=== PATIENT | female | born 1975 | race Caucasian/White ===

== ENCOUNTER 2018-06-18 19:14 | Emergency (ER) | payer OTHER ==
[2018-06-18] MEDS ORDERED: ONDANSETRON 4 MG/2 ML VIAL ONE ×2 (19:19→19:54)
[2018-06-18] MEDS ORDERED: ONDANSETRON 4 MG/2 ML VIAL IVPUSH ONE ×2 (19:28→19:52)
[2018-06-18] MEDS ORDERED: SODIUM CHLORIDE 1,000 ML IV STA ×2 (19:28→19:52)
--- NOTE | 2018-06-18 19:29 | PDOC ---
History of Present Illness - General History Source: Patient Exam Limitations: No Limitations - History of Present Illness Initial Comments: 06/18/18 20:03 The patient is a 42 year old female, with no significant PMH, who presents to the emergency department complaining of nonbilious nonbloody vomiting that began today at noon. The patient endorses associated symptoms of 1 episode of diarrhea, chills, and nausea. The patient states she thinks she has a stomach virus because she was in contact with friends son who had it. The patient denies chest pain, shortness of breath, headache and dizziness.Denies fever and constipation.Denies dysuria, frequency, urgency and hematuria. Allergies: sulfur Past surgical history:None reported Social history: None reported PCP:None reported <Cristo Barbour - Last Filed: 06/18/18 21:03> <Olga Eastman - Last Filed: 06/19/18 00:02> - General Chief Complaint: Nausea/Vomiting Stated Complaint: VOMITING SINCE 12N Time Seen by Provider: 06/18/18 19:15 Past History <Cristo Barbour - Last Filed: 06/18/18 21:03> - Past Medical History COPD: No - Suicide/Smoking/Psychosocial Hx Smoking History: Never smoked Have you smoked in the past 12 months: No Information on smoking cessation initiated: No Hx Alcohol Use: No Drug/Substance Use Hx: No <Olga Eastman - Last Filed: 06/19/18 00:02> - Past Medical History Allergies/Adverse Reactions: Allergies Allergy/AdvReac Type Severity Reaction Status Date / Time sulfur [From Sulfur-8] Allergy Verified 06/18/18 19:22 Home Medications: Ambulatory Orders Fluticasone Prop 0.05% Nasal [Flonase -] 1 - 2 spray NS DAILY 06/18/18 Review of Systems - Review of Systems Able to Perform ROS?: Yes Comments:: 06/18/18 20:03 GENERAL/CONSTITUTIONAL:+Chills. No weakness. HEAD, EYES, EARS, NOSE AND THROAT: No change in vision. No ear pain or discharge. No sore throat. CARDIOVASCULAR: No chest pain or shortness of breath. RESPIRATORY: No cough, wheezing, or hemoptysis. GASTROINTESTINAL: +Nausea + vomiting + diarrhea. No constipation. GENITOURINARY: No dysuria, frequency, or change in urination. MUSCULOSKELETAL: No joint or muscle swelling or pain. No neck or back pain. SKIN: No rash NEUROLOGIC: No headache, vertigo, loss of consciousness, or change in strength/ sensation. ENDOCRINE: No increased thirst. No abnormal weight change. HEMATOLOGIC/LYMPHATIC: No anemia, easy bleeding, or history of blood clots. ALLERGIC/IMMUNOLOGIC: No hives or skin allergy. <KmSkylersimon - Last Filed: 06/18/18 21:03> *Physical Exam - Vital Signs Last Vital Signs Temp Pulse Resp BP Pulse Ox 98.6 F 99 H 16 125/84 100 06/18/18 19:24 06/18/18 19:24 06/18/18 19:24 06/18/18 19:24 06/18/18 19:24 - Physical Exam Comments: 06/18/18 20:03 GENERAL: Awake, alert, and fully oriented, in no acute distress HEAD: No signs of trauma EYES: PERRLA, EOMI, sclera anicteric, conjunctiva clear ENT: +Dry mucous membrane.Auricles normal inspection, hearing grossly normal, nares patent, oropharynx clear without exudates. LUNGS: Breath sounds equal, clear to auscultation bilaterally. No wheezes, and no crackles HEART: Regular rate and rhythm, normal S1 and S2, no murmurs, rubs or gallops ABDOMEN: Soft, nontender, normoactive bowel sounds. No guarding, no rebound. No masses NEUROLOGICAL: Cranial nerves II through XII grossly intact. Normal speech, normal gait SKIN: Warm, Dry, normal turgor, no rashes or lesions noted. <Cristo Barbour - Last Filed: 06/18/18 21:03> - Vital Signs Last Vital Signs Temp Pulse Resp BP Pulse Ox 98.6 F 99 H 16 125/84 100 06/18/18 19:24 06/18/18 19:24 06/18/18 19:24 06/18/18 19:24 06/18/18 19:24 <Olga Eastman - Last Filed: 06/19/18 00:02> ED Treatment Course - Medications Given in the ED: ED Medications Discontinued Medications Generic Name Dose Route Start Last Admin Trade Name Freq PRN Reason Stop Dose Admin Ondansetron HCl 4 mg 06/18/18 19:28 06/18/18 19:31 Zofran Injection IVPUSH 06/18/18 19:29 4 mg ONCE ONE Administration Ondansetron HCl 4 mg 06/18/18 19:52 06/18/18 19:59 Zofran Injection IVPUSH 06/18/18 19:53 4 mg ONCE ONE Administration <Cristo Barbour - Last Filed: 06/18/18 21:03> Progress Note - Progress Note Progress Note: Documentation has been prepared under my direction and personally reviewed by me in its entirety. I attest that this documented accurately reflects all work, treatment, procedures and medical decision making performed by me. <Olga Eastman - Last Filed: 06/19/18 00:02> Medical Decision Making - Medical Decision Making As noted above, this 42-year-old woman presents with 1 day history of nausea and vomiting (also had one episode of diarrhea). No fever or significant abdominal pain. Patient had known exposure to child with gastroenteritis. Exam as noted. Patient received 2 L of normal saline as well as 8 mg Zofran IV. Patient reports that she feels somewhat better although has some slight nausea. She much prefers to be discharged rather than have another antiemetic medication administered. Since her hydration appears to be significantly better on exam (mucous membranes moist) and she is not actively vomiting, she will be discharged with instructions to follow clear liquid diet and advance very cautiously. The patient has Zofran ODT tablets at home([id number] is box liner and had given her samples of the medication). She will take this as needed for persistent nausea. She should return to the emergency room if she has recurrent vomiting or develops fever/abdominal pain <Olga Eastman - Last Filed: 06/19/18 00:02> *DC/Admit/Observation/Transfer - Attestations Scribe Attestion: 06/18/18 20:03 Documentation prepared by Cristo Barbour, acting as medical or surgical instrument maker for Olga Eastman MD. <Cristo Barbour - Last Filed: 06/18/18 21:03> <Olga Eastman - Last Filed: 06/19/18 00:02> Diagnosis at time of Disposition: Gastroenteritis - Discharge Dispostion Disposition: HOME Condition at time of disposition: Stable - Patient Instructions Printed Discharge Instructions: Viral Gastroenteritis Additional Instructions: Clear liquids; advance diet cautiously Zofran ODT as needed for nausea as discussed Return to ER if you have persistent vomiting or develop fever/abdominal pain
[2018-06-18 19:36] VITALS: BP 125/84; PULSE 99; TEMP 98.6; BMI 21.2
== END 2018-06-18 20:55 | disposition home or self-care (01) ==
LOC: FER 19:14
PROC: 3E033GC Introduction of Other Therapeutic Substance into Peripheral Vein, Percutaneous Approach (ICD-10-PCS; principal; 2018-06-18)
PROC: 3E0337Z Introduction of Electrolytic and Water Balance Substance into Peripheral Vein, Percutaneous Approach (ICD-10-PCS; 2018-06-18)
DX: K52.9 Noninfective gastroenteritis and colitis, unspecified (principal)
CPT/HCPCS: 99281-25; J7030

== ENCOUNTER 2023-07-24 01:24 | Emergency (ER) | payer OTHER ==
[2023-07-24] MEDS ORDERED: ACETAMINOPHEN INJECTION 100 ML IVPB ONE ×2 (01:41→08:39)
[2023-07-24] MEDS ORDERED: ONDANSETRON 4 MG/2 ML VIAL ONE ×2 (01:41→04:53)
[2023-07-24] MEDS ORDERED: FAMOTIDINE 20 MG/50 ML IVPB 20 MG/50 ML MG IVPB ONE (01:41)
[2023-07-24] MEDS: SODIUM CHLORIDE 0.9% 500 ML INFUS.BAG IV ONE ×2 (01:54→08:41)
[2023-07-24] MEDS: FAMOTIDINE 20 MG/50 ML IVPB 20 MG/50 ML MG IVPB ONE (01:55)
[2023-07-24] MEDS: ACETAMINOPHEN 1000 MG/100 ML BAG IVPB ONE ×2 (01:55→08:42)
[2023-07-24] MEDS: ONDANSETRON 4 MG/2 ML VIAL IVPB ONE ×2 (01:55→04:56)
[2023-07-24] MEDS ORDERED: METOCLOPRAMIDE HCL INJECTION 10 MG/2 ML VIAL ONE ×2 (03:51→08:39)
[2023-07-24] MEDS ORDERED: MAG HYDROX/AL HYDROX/SIMETH 30 ML UNIT-DOSE CUP ONE (03:52)
[2023-07-24] MEDS ORDERED: SUCRALFATE 1 GM/10 ML UNIT DOSE CUPS ONE (03:52)
[2023-07-24] MEDS: METOCLOPRAMIDE HCL INJECTION 10 MG/2 ML VIAL IVPB ONE (03:56)
[2023-07-24] MEDS: SUCRALFATE 1 GM TABLET (FP) PO ONE (04:12)
[2023-07-24] MEDS: MAG HYDROX/AL HYDROX/SIMETH -MYLANTA- ORAL SUSPENSION PO ONE (04:12)
[2023-07-24 04:26] LABS: URINE APPEARANCE CLEAR; URINE BILIRUBIN NEGATIVE (NEGATIVE); URINE COLOR YELLOW; URINE GLUCOSE (UA) 3+ (NEGATIVE); URINE KETONE 1+ (NEGATIVE); URINE LEUK ESTERASE NEGATIVE (NEGATIVE); URINE NITRITE NEGATIVE (NEGATIVE); URINE PROTEIN NEGATIVE (NEGATIVE); URINE UROBILINOGEN 0.2 mg/dL (0.2-1.0)
[2023-07-24 04:29] LABS: HCG,QUALITATIVE URINE Negative
[2023-07-24 04:39] LABS: BASO % 0.3 % (0-2.0); EOS % 2.2 % (0-4.5); HEMATOCRIT 44.5 % (32.4-45.2); LYMPH % 6.9 % (8-40); MCHC 33.8 g/dl (32.0-36.0); MEAN CELL VOLUME 91.8 fl (80-96); MEAN PLT VOLUME 8.5 fl (7.5-11.1); MONO % 5.6 % (3.8-10.2); PLATELET COUNT 296 10^3/uL (134-434); RBC 4.85 M/mm3 (3.60-5.2); WHITE BLOOD COUNT 11.7 K/mm3 (4.0-10.0)
[2023-07-24 04:48] LABS: ALBUMIN 3.6 g/dl (3.4-5.0)
[2023-07-24 04:49] LABS: BLOOD UREA NITROGEN 11.5 mg/dL (7-18)
[2023-07-24 04:51] LABS: CREATININE 0.8 mg/dL (0.55-1.3)
[2023-07-24 04:53] LABS: BILIRUBIN,TOTAL 0.5 mg/dL (0.2-1); TOT PROT 6.8 g/dl (6.4-8.2)
[2023-07-24] MEDS: DEXTROSE 5%-WATER - 1,000 ML IV SCH (04:56)
[2023-07-24] MEDS ORDERED: ONDANSETRON 4 MG/2 ML VIAL IVPUSH PRN (08:54)
[2023-07-24] MEDS: METOCLOPRAMIDE HCL INJECTION 10 MG/2 ML VIAL IVPUSH ONE (08:57)
[2023-07-24 10:16] VITALS: BMI 24.0
[2023-07-24 11:21] LABS: METHADONE, UR NEGATIVE (NEGATIVE); URINE BENZODIAZEPINES NEGATIVE (NEGATIVE)
[2023-07-24 11:22] LABS: OPIATES, URI NEGATIVE (NEGATIVE); PHENCYCLIDINE,URINE NEGATIVE (NEGATIVE); URINE AMPHETAMINES NEGATIVE (NEGATIVE); URINE BARBITURATES NEGATIVE (NEGATIVE)
[2023-07-24] MEDS: METOCLOPRAMIDE HCL INJECTION 10 MG/2 ML VIAL IVPUSH SCH (11:29)
[2023-07-24 11:45] LABS: COCAINE, UR NEGATIVE (NEGATIVE)
[2023-07-24] MEDS: SODIUM CHLORIDE 0.9% 1000 ML INFUS.BAG IV ONE (13:44)
[2023-07-24] MEDS: ACETAMINOPHEN 500 MG TABLET (FP) PO PRN (14:15)
[2023-07-25 02:30] VITALS: RESP 18
[2023-07-25 08:26] LABS: HEMATOCRIT 37.1 % (32.4-45.2); MCH 30.6 pg (25.7-33.7); MCHC 32.5 g/dl (32.0-36.0); MEAN CELL VOLUME 94.5 fl (80-96); MEAN PLT VOLUME 8.3 fl (7.5-11.1); PLATELET COUNT 188.9 10^3/uL (134-434); RBC 3.93 10^6/uL (3.60-5.2); RDW 13.3 % (11.6-15.6); WHITE BLOOD COUNT 3.6 10^3/uL (4.0-10.8)
[2023-07-25 08:31] LABS: CALCIUM 7.7 mg/dl (8.5-10.1); CREATININE 0.8 mg/dl (0.6-1.3); MAGNESIUM 1.9 mg/dL (1.8-2.4); PHOSPHOROUS 1.4 (2.5-4.9); POTASSIUM 3.4 mmol/L (3.5-5.1)
[2023-07-25 09:29] VITALS: BP 103/64; PULSE 82; TEMP 98.8
[2023-07-25] MEDS: NAPH,MB-DB/K PH,MBDB POWDER PACKET PO ONE (10:21)
== END 2023-07-25 14:31 | disposition home or self-care (01) ==
LOC: FER 01:24 → FM/S 09:10
PROVIDERS: ADMIT Internal Medicine; ATTEND Internal Medicine
PROC: 3E033GC Introduction of Other Therapeutic Substance into Peripheral Vein, Percutaneous Approach (ICD-10-PCS; principal; 2023-07-24)
PROC: 3E033GC Introduction of Other Therapeutic Substance into Peripheral Vein, Percutaneous Approach (ICD-10-PCS; 2023-07-24)
PROC: 3E033GC Introduction of Other Therapeutic Substance into Peripheral Vein, Percutaneous Approach (ICD-10-PCS; 2023-07-24)
PROC: 3E033NZ Introduction of Analgesics, Hypnotics, Sedatives into Peripheral Vein, Percutaneous Approach (ICD-10-PCS; 2023-07-24)
PROC: 3E033NZ Introduction of Analgesics, Hypnotics, Sedatives into Peripheral Vein, Percutaneous Approach (ICD-10-PCS; 2023-07-24)
PROC: 3E033GC Introduction of Other Therapeutic Substance into Peripheral Vein, Percutaneous Approach (ICD-10-PCS; 2023-07-24)
PROC: 3E033GC Introduction of Other Therapeutic Substance into Peripheral Vein, Percutaneous Approach (ICD-10-PCS; 2023-07-24)
DX: R11.2 Nausea with vomiting, unspecified (principal); R19.7 Diarrhea, unspecified; R10.13 Epigastric pain
CPT/HCPCS: 36415; 80048; 80053; 80307; 81003; 83036; 83690; 83735; 84100; 84703; 85025; 85027; 93005; 96365; 96375; 96376; 99284-25; G0378; J0131